=== PATIENT | female | born 1965 | race Caucasian/White ===

== ENCOUNTER 2020-10-30 07:31 | Day surgery (SDC) | payer BC ==
[2020-10-28 11:59] VITALS: BMI 35.4
[~2020-10-30 07:31] MED LIST: ACETAMINOPHEN TAB 500 MG TAB PO PRN; DEXAMETHASONE SOD PHOSPHATE 4 MG/ML 1 ML VIAL IV ONE; FAMOTIDINE 20 MG/2 ML VIAL IV PRN; HEPARIN SODIUM,PORCINE/PF 5,000 UNIT/0.5 ML SYRINGE SQ PRN; HYDROmorphone 0.5 MG/0.5 ML SYRINGE IVP PRN; LACTATED RINGERS 1,000 ML IV SCH; ONDANSETRON 4 MG/2 ML VIAL IVP ONE
[2020-10-30] MEDS ORDERED: METOCLOPRAMIDE 5 MG/ML 2 ML VIAL ONE (08:28)
[2020-10-30] MEDS ORDERED: SUCCINYLCHOLINE CHLORIDE 100 MG/5 ML SYR IV ONE (08:45)
[2020-10-30] MEDS ORDERED: MIDAZOLAM 2 MG/2 ML VIAL ONE (08:45)
[2020-10-30] MEDS ORDERED: PROPOFOL 10 MG/ML 20 ML VIAL IV ONE (08:45)
[2020-10-30] MEDS ORDERED: LIDOCAINE 1% INJ 10MG/ML (20 ML MDV) ONE (08:45)
[2020-10-30] MEDS ORDERED: fentaNYL (PF) 50 MCG/ML 2 ML AMP ONE (08:45)
[2020-10-30] MEDS ORDERED: BUPIVACAINE (PF) 0.5% 30 ML VIAL SQ ONE (09:08)
[2020-10-30 09:32] VITALS: TEMP 97
[2020-10-30 09:45] VITALS: RESP 16
[2020-10-30 11:14] VITALS: BP 117/79; PULSE 84
--- NOTE | 2020-11-05 13:10 | P.GSHP ---
History of Present Illness H&P Date: 11/05/20 Chief Complaint: Right shoulder malignant melanoma Is a 54-year-old female who's had a previously diagnosed right shoulder melanoma. Patient rents today for wide local excision Past Medical History Past Medical History: Cancer, Hyperlipidemia, Hypertension, Thyroid Disorder Additional Past Medical History / Comment(s): melanoma right shoulder. seasonal allergies History of Any Multi-Drug Resistant Organisms: None Reported Past Surgical History: Section, Joint Replacement Additional Past Surgical History / Comment(s): partial lt knee replacement Past Anesthesia/Blood Transfusion Reactions: No Reported Reaction Smoking Status: Current every day smoker - Past Family History Mother Family Medical History: No Reported History Medications and Allergies Home Medications Medication Instructions Recorded Confirmed Type Atorvastatin [Lipitor] 20 mg PO HS 10/28/20 10/28/20 History Ergocalciferol [Vitamin D2 (1250 1,250 mcg PO WEEKLY 10/28/20 10/28/20 History Mcg = 12441 Iu)] Hydrochlorothiazide 12.5 mg PO DAILY 10/28/20 10/28/20 History [hydroCHLOROthiazide] Levothyroxine Sodium 125 mcg PO DAILY 10/28/20 10/28/20 History Sertraline HCl [Zoloft] 50 mg PO DAILY 10/28/20 10/28/20 History Terbinafine [LamISIL] 250 mg PO DAILY 10/28/20 10/28/20 History lamoTRIgine [LaMICtal] 50 mg PO HS 10/28/20 10/28/20 History Allergies Allergy/AdvReac Type Severity Reaction Status Date / Time dog dander Allergy itchy eyes Verified 10/30/20 07:59 Fish Containing Products Allergy Swelling Verified 10/30/20 07:59 [Fish] grass pollen Allergy itchy eyes Verified 10/30/20 07:59 Iodine and Iodide Containing Allergy Swelling Verified 10/30/20 07:59 Produc shellfish derived [Shellfish] Allergy Swelling Verified 10/30/20 07:59 Surgical - Exam Vital Signs Temp Pulse Resp BP Pulse Ox 98.2 F 92 16 164/83 95 10/30/20 08:00 10/30/20 08:00 10/30/20 08:00 10/30/20 08:00 10/30/20 08:00 - General well developed, well nourished, no distress - Eyes PERRL - ENT normal pinna - Neck no masses - Respiratory normal expansion - Cardiovascular Rhythm: regular - Abdomen Abdomen: soft, non tender - Integumentary Right shoulder melanoma shave biopsy site Assessment and Plan Assessment: Right shoulder melanoma. Wide local excision
--- NOTE | 2020-11-05 13:11 | P.OP ---
Date of Procedure: 10/30/20 Preoperative Diagnosis: Melanoma right shoulder Postoperative Diagnosis: Melanoma right shoulder Procedure(s) Performed: Wide local excision melanoma right shoulder Anesthesia: JOE Surgeon: Oliver Julian Estimated Blood Loss (ml): 5 Pathology: other (Melanoma right shoulder) Condition: stable Disposition: PACU Description of Procedure: Patient's placed on the operative table in the supine position. Patient received IV general sedation. The right shoulder melanoma was necessary to look Xylocaine. Using a 15 blade the ligament was considerable normal. The specimen measured 4 x 3 x 0.57 is. The Bovie was used history of serosal interrupted 3-0 Monocryl suture. Dermabond was applied. Patient top she will was sent to recovery room in stable condition.
== END 2020-10-30 11:40 | disposition home or self-care (01) ==
LOC: OR 07:31
PROVIDERS: ATTEND Surgery
DX: C43.61 Malignant melanoma of right upper limb, including shoulder (principal); I10 Essential (primary) hypertension; E78.5 Hyperlipidemia, unspecified; F17.210 Nicotine dependence, cigarettes, uncomplicated; Z79.890 Hormone replacement therapy; Z79.899 Other long term (current) drug therapy; Z98.891 History of uterine scar from previous surgery; Z96.652 Presence of left artificial knee joint; Z97.2 Presence of dental prosthetic device (complete) (partial); Z91.013 Allergy to seafood; Z91.048 Other nonmedicinal substance allergy status
CPT/HCPCS: 11606; 88305; 88342; 88341; J2250; J1100; J2765; J0690; J2405; J2001; J3010; J0330; J2704; J1644